=== PATIENT | male | born 1985 | race Caucasian/White ===

== ENCOUNTER 2018-06-01 18:24 | Emergency (ER) | payer OTHER ==
[2018-06-01 19:05] VITALS: BP 128/67; PULSE 65; TEMP 98.1; BMI 29.9
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
== END 2018-06-01 19:37 | disposition home or self-care (01) ==
LOC: JER 18:24
DX: Z20.1 Contact with and (suspected) exposure to tuberculosis (principal); Y35.891A Legal intervention involving other specified means, law enforcement official injured, initial encounter; Y93.89 Activity, other specified; Y92.89 Other specified places as the place of occurrence of the external cause; Y99.0 Civilian activity done for income or pay
CPT/HCPCS: 99281-25

== ENCOUNTER 2018-09-15 20:16 | Emergency (ER) | payer OTHER ==
[2018-09-15 20:28] VITALS: BP 130/83; PULSE 54; TEMP 98.2; BMI 29.6
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
[2018-09-15] MEDS ORDERED: BACITRACIN 15 GM TUBE TOPICAL OINTMENT TP ONE (20:38)
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
== END 2018-09-15 21:03 | disposition home or self-care (01) ==
LOC: JERFT 20:16
DX: S60.411A Abrasion of left index finger, initial encounter (principal); V43.62XA Car passenger injured in collision with other type car in traffic accident, initial encounter; Y92.414 Local residential or business street as the place of occurrence of the external cause; Y93.89 Activity, other specified; Y99.0 Civilian activity done for income or pay
CPT/HCPCS: 99281-25

== ENCOUNTER 2018-11-19 23:32 | Emergency (ER) | payer OTHER ==
[2018-11-20] VITALS: BMI 29.6
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
--- NOTE | 2018-11-20 00:34 | PDOC ---
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
[2018-11-20 01:28] VITALS: BP 128/83; PULSE 88; TEMP 98.5
== END 2018-11-20 01:39 | disposition home or self-care (01) ==
LOC: JER 23:32
DX: S69.91XA Unspecified injury of right wrist, hand and finger(s), initial encounter (principal); Y35.891A Legal intervention involving other specified means, law enforcement official injured, initial encounter; Y93.89 Activity, other specified; Y92.89 Other specified places as the place of occurrence of the external cause; Y99.0 Civilian activity done for income or pay
CPT/HCPCS: 73130-TC-RT-FY; 99281-25

== ENCOUNTER 2019-01-08 22:47 | Emergency (ER) | payer OTHER ==
[2019-01-08 22:53] VITALS: BP 136/74; PULSE 73; TEMP 98.6; BMI 30.4
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
[2019-01-08] MEDS ORDERED: HIV POST EXPOSURE PROPHYLAXIS KIT NR ONE (23:38)
[2019-01-09 00:09] LABS: BASO % 0.8 % (0-2.0); EOS % 3.6 % (0-4.5); HEMATOCRIT 43.4 % (35.4-49); HEMOGLOBIN 15.3 GM/dL (11.7-16.9); LYMPH % 32.3 % (8-40); MCH 31.9 pg (25.7-33.7); MCHC 35.3 g/dl (32.0-35.9); MEAN CELL VOLUME 90.3 fl (80-96); MEAN PLT VOLUME 8.5 fl (7.5-11.1); MONO % 5.9 % (3.8-10.2); NEUT % 57.4 % (42.8-82.8); PLATELET COUNT 161 K/MM3 (134-434); RDW 12.9 % (11.9-15.9); WHITE BLOOD COUNT 8.1 K/mm3 (4.0-10.0)
[2019-01-09 00:45] LABS: CO2 25 mmol/L (21-32); CREATININE 1.2 mg/dL (0.55-1.3)
[2019-01-09 00:46] LABS: CALCIUM 8.4 mg/dL (8.5-10.1)
[2019-01-09 00:47] LABS: ALK PHOS 70 U/L (45-117)
[2019-01-09] MEDS ORDERED: HIV POST EXPOSURE PROPHYLAXIS KIT PO ONE (01:11)
[2019-01-09 02:25] LABS: ALBUMIN 4.2 g/dl (3.4-5.0); ANION GAP 7 MMOL/L (8-16); BILIRUBIN,TOTAL 0.4 mg/dL (0.2-1); BLOOD UREA NITROGEN 23 mg/dL (7-18); CHLORIDE 107 mmol/L (98-107); CHOLESTEROL 195 mg/dL (50-200); GAMMA GLUTAMYL TRANSPEPTIDASE 16 U/L (5-85); GLUCOSE,RANDOM 91 mg/dL (74-106); LDH 198 U/L (87-246); PHOSPHOROUS 3.6 mg/dL (2.5-4.9); POTASSIUM 3.9 mmol/L (3.5-5.1); SGOT/AST 22 U/L (15-37); SGPT/ALT 39 U/L (13-61); SODIUM 139 mmol/L (136-145); TOT PROT 7.3 g/dl (6.4-8.2); TRIGLYCERIDES 126 mg/dL (0-150); URIC ACID 6.4 mg/dL (2.6-7.2)
[2019-01-10 03:14] LABS: HBsAG SCREEN Negative (Negative)
== END 2019-01-09 01:32 | disposition home or self-care (01) ==
LOC: JER 22:47
DX: Z77.21 Contact with and (suspected) exposure to potentially hazardous body fluids (principal); S60.511A Abrasion of right hand, initial encounter; Y35.811A Legal intervention involving manhandling, law enforcement official injured, initial encounter; Y93.89 Activity, other specified; Y92.89 Other specified places as the place of occurrence of the external cause; Y99.0 Civilian activity done for income or pay
CPT/HCPCS: 36415; 80053; 82465; 82977; 83615; 84100; 84478; 84550; 85025; 86317; 86706; 86803; 87340; 87389; 99281-25

== ENCOUNTER 2019-03-05 20:23 | Emergency (ER) | payer OTHER ==
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
[2019-03-05 20:31] VITALS: BP 173/103; PULSE 100; TEMP 98.3; BMI 29.6
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
== END 2019-03-05 21:55 | disposition home or self-care (01) ==
LOC: JERFT 20:23
DX: S76.111A Strain of right quadriceps muscle, fascia and tendon, initial encounter (principal); Y35.811A Legal intervention involving manhandling, law enforcement official injured, initial encounter; Y93.89 Activity, other specified; Y92.89 Other specified places as the place of occurrence of the external cause; Y99.0 Civilian activity done for income or pay; I10 Essential (primary) hypertension
CPT/HCPCS: 99281-25

== ENCOUNTER 2019-12-13 11:20 | Emergency (ER) | payer BC, OTHER ==
[2019-12-13 11:28] VITALS: BMI 29.6
--- NOTE | 2019-12-13 11:54 | PDOC ---
History of Present Illness - General Chief Complaint: Vomiting/Diarrhea Stated Complaint: DIARRHEA, VOMITING Time Seen by Provider: 12/13/19 11:28 History Source: Patient Exam Limitations: No Limitations - History of Present Illness Initial Comments: 12/13/19 11:54 PCP: Dr. Jocelyne Rizvi HPI: 34yo M no PMH presenting with fevers, chills, bodyaches, diarrhea, vomiting , headache for 5 days. Patient endorses worsening diarrhea over the past two days, took an immodium this morning, subsequently diarrhea resolved and vomiting worsened. He presents give concern over feeling unable to keep up with his hydration in setting of diarrhea, vomiting. Endorses profusely watery diarrhea and vomiting up pure water. Denies any blood in stool or emesis. Started on amoxicillin and Tamiflu by his pcp two days ago. Reports two negative flu swabs over this period and a negative rapid strep (reports he had throat pain, improving). Took Advil this morning, threw up shortly after. Has not taken Tylenol. Denies any new or unique foods, no one else with similar diarrhea symptoms that he ate with before onset. All: Levaquin > Hives Meds: Currently on Amoxicillin, Tamiflu PMH: IBS PSH: L elbow Past History - Past Medical History Allergies/Adverse Reactions: Allergies Allergy/AdvReac Type Severity Reaction Status Date / Time levofloxacin [From Levaquin] Allergy Hives Verified 12/13/19 11:22 Home Medications: Ambulatory Orders Amox-Tr/K Cl [Augmentin - 875Mg Tablet] 1 tab PO ASDIR 12/13/19 Guaifenesin [Mucinex] 600 mg PO BID 12/13/19 Ibuprofen 400 mg PO AM 12/13/19 Ondansetron HCl [Zofran] 4 mg PO TID PRN #9 tablet 12/13/19 Oseltamivir Phosphate [Tamiflu] 75 mg PO DAILY 12/13/19 COPD: No - Psycho Social/Smoking Cessation Hx Smoking Status: No Smoking History: Never smoked Have you smoked in the past 12 months: No Number of Cigarettes Smoked Daily: 0 Information on smoking cessation initiated: No Hx Alcohol Use: ("weekly") Drug/Substance Use Hx: No Substance Use Type: None Review of Systems - Review of Systems Able to Perform ROS?: Yes Is the patient limited Lao proficient: Yes Constitutional: Yes: Chills, Fever. No: Diaphoresis, Weakness HEENTM: No: Recent change in vision, Nose Congestion, Throat Pain Respiratory: Yes: Shortness of Breath. No: Cough, Productive cough Cardiac (ROS): No: Chest Pain, Irregular Heart Rate, Lightheadedness, Palpitations, Syncope, Chest Tightness ABD/GI: Yes: Diarrhea, Nausea, Poor Appetite, Poor Fluid Intake, Vomiting. No: Constipated : Yes: Flank Pain. No: Burning, Dysuria, Frequency Musculoskeletal: Yes: Muscle Pain (bodyaches). No: Muscle Weakness Integumentary: No: Bruising, Rash, Sweating Neurological: Yes: Headache. No: Numbness, Tingling, Weakness Psychiatric: No: Stressors, Change in Appetite Endocrine: No: Increased Thirst, Increased Urine Hematologic/Lymphatic: No: Anemia, Blood Clots, Easy Bleeding All Other Systems: Reviewed and Negative *Physical Exam - Vital Signs Last Vital Signs Temp Pulse Resp BP Pulse Ox 98.2 F 95 H 18 146/101 H 98 12/13/19 11:20 12/13/19 11:20 12/13/19 11:20 12/13/19 11:20 12/13/19 11:20 - Physical Exam 12/13/19 12:15 Vitals reviewed, AFVSS, mild HTN GEN: Appears stated age, NAD. AAOx3. HEENT: NCAT, EOMI, PERRL. Sclera anicteric, non-injected. No facial asymmetry. Dry mucous membranes. Normal voice. Trachea midline. CV: RRR, S1/S2, no murmurs / rubs / gallops appreciated. LUNG: CTAB, normal work of breathing. No wheezes, rales, rhonchi. No cough. Speaking full sentences. GI: Soft, NTND, +BS, no guarding, no rebound. No masses. Neg CVAT b/l. EXTREMITIES: 2+ distal pulses. No LE edema. No obvious deformities of all extremities. SKIN: Warm, dry, no rashes appreciated, non-jaundiced. PSYCH: Normal mood and affect. Cooperative and appropriate. NEURO: CN grossly intact. Moving all extremities well. Normal strength and sensation grossly. ED Treatment Course - LABORATORY CBC & Chemistry Diagram: 12/13/19 12:30 12/13/19 12:30 Medical Decision Making - Medical Decision Making 12/13/19 12:46 34yo M no PMH presenting with fevers, chills, bodyaches, diarrhea, vomiting, headache for 5 days. History notable for day 2 of 10 for Amoxicillin and Tamiflu , Immodium, concern over hydration status, worsening watery diarrhea. Exam notable for stable vitals, dry mucous membranes, non-tender abdomen. DDX: Viral gastro enteritis vs influenza vs IBS symptoms, vs less likely colitis. - CBC, CMP - EKG - 1L IVF - 1 g Ofirmev EKbpm, NSR, normal axis, QTc 439, no ischemic morphologies or ST changes - 4mg Zofran 12/13/19 13:25 - Additional 1L IVF ordered - 30 Toradol IV 12/13/19 14:01 - CBC, CMP unremarkable Dispo: Home Discharge - Discharge Information Problems reviewed: Yes Clinical Impression/Diagnosis: Viral gastroenteritis Condition: Stable Disposition: HOME - Admission No - Additional Discharge Information Prescriptions: Ondansetron HCl [Zofran] 4 mg PO TID PRN #9 tablet PRN Reason: Nausea And/Or Vomiting - Follow up/Referral Referrals: Jocelyne Nation MD [Primary Care Provider] - - Patient Discharge Instructions Patient Printed Discharge Instructions: DI for Viral Gastroenteritis -- Adult Additional Instructions: Continue your home medications as prescribed. Stay hydrated with water and electrolyte beverages. A prescription for zofran has been sent to your pharmacy for nausea or vomiting. Use this as needed as directed. Please follow up with your primary care doctors in the next 2-3 days if your symptoms persist. Return to the ED for any new or concerning symptoms. - Post Discharge Activity
--- NOTE | 2019-12-13 12:07 | PDOC ---
Attending Attestation - Resident Resident Name: Cesar Morales - ED Attending Attestation I have performed the following: I have examined & evaluated the patient, The case was reviewed & discussed with the resident, I agree w/resident's findings & plan, Exceptions are as noted - HPI HPI: 34 yo M history IBS presents with fever x4 days (Tmax ~103, now resolved) as well as chills, myalgias, STRANGE, diarrhea, vomiting for past 5 days. He states he was tested for flu, test was negative. However, PMD placed him on amox and tamiflu. He has had watery diarrhea and vomiting for past 2 days. +Abdominal cramping diffusely. - Physicial Exam PE: GENERAL: Awake, alert, and fully oriented, in no acute distress. +Mild pallor. Appears ill but nontoxic HEAD: No signs of trauma EYES: PERRLA, EOMI, sclera anicteric, conjunctiva clear ENT: Auricles normal inspection, hearing grossly normal, nares patent, oropharynx clear without exudates. Dry mucosa NECK: Normal ROM, supple, no lymphadenopathy, JVD, or masses LUNGS: Breath sounds equal, clear to auscultation bilaterally. No wheezes, and no crackles HEART: Regular rate and rhythm, normal S1 and S2, no murmurs, rubs or gallops ABDOMEN: Soft, diffuse mild tenderness, hyperactive bowel sounds. No guarding, no rebound. No masses EXTREMITIES: Normal range of motion, no edema. No clubbing or cyanosis. No cords, erythema, or tenderness NEUROLOGICAL: Cranial nerves II through XII grossly intact. Normal speech, normal gait. Motor and sensation intact SKIN: Warm, dry, normal turgor, no rashes or lesions noted. - Medical Decision Making Pt is ill-appearing but nontoxic. Likely flu, given the nasal congestion with the high fever and GI symptoms. His GI symptoms are likely worse because of history of IBS, use of abx, and tamiflu. Also, GI symptoms have been prevalent with flu recently. No signs of acute abdomen. Will give IV hydration, antiemetics, and check labs. If wnl, will DC home.
[2019-12-13] MEDS ORDERED: SODIUM CHLORIDE 0.9% 500 ML INFUS.BAG IV ONE ×2 (12:10→13:24)
[2019-12-13] MEDS ORDERED: ACETAMINOPHEN 1000 MG/100 ML VIAL (NON FORMULARY) IVPB ONE (12:11)
[2019-12-13] MEDS ORDERED: ACETAMINOPHEN INJECTION 100 ML IVPB ONE (12:41)
[2019-12-13] MEDS ORDERED: ONDANSETRON 4 MG/2 ML VIAL IVPUSH ONE (12:49)
[2019-12-13] MEDS ORDERED: ONDANSETRON 4 MG/2 ML VIAL ONE (12:51)
[2019-12-13 12:59] LABS: BASO % 0.4 % (0-2.0); EOS % 0.7 % (0-4.5); HEMATOCRIT 43.8 % (35.4-49); LYMPH % 17.8 % (8-40); MCH 30.8 pg (25.7-33.7); MCHC 34.3 g/dl (32.0-35.9); MEAN CELL VOLUME 89.9 fl (80-96); MEAN PLT VOLUME 8.5 fl (7.5-11.1); MONO % 6.9 % (3.8-10.2); NEUT % 74.2 % (42.8-82.8); PLATELET COUNT 132 K/MM3 (134-434); RBC 4.88 M/mm3 (4.00-5.60); RDW 11.5 % (11.9-15.9); WHITE BLOOD COUNT 5.8 K/mm3 (4.0-10.8)
[2019-12-13 13:07] LABS: ALBUMIN 4.3 g/dl (3.4-5.0); BILIRUBIN,TOTAL 0.7 mg/dl (0.2-1); CALCIUM 8.7 mg/dl (8.5-10); CREATININE 0.8 mg/dl (0.55-1.3); POTASSIUM 4.2 mmol/L (3.5-5.1); TOT PROT 7.3 g/dl (6.4-8.2)
[2019-12-13] MEDS ORDERED: KETOROLAC TROMETHAMINE 30 MG/1 ML VIAL IVPUSH ONE (13:29)
[2019-12-13] MEDS ORDERED: KETOROLAC TROMETHAMINE 30 MG/1 ML VIAL ONE (13:32)
[2019-12-13 15:01] VITALS: BP 130/80; PULSE 87; TEMP 97.8
--- NOTE | 2019-12-14 12:50 | EKG ---
Test Reason : Blood Pressure : / mmHG Vent. Rate : 077 BPM Atrial Rate : 077 BPM P-R Int : 144 ms QRS Dur : 082 ms QT Int : 388 ms P-R-T Axes : 025 006 003 degrees QTc Int : 439 ms NORMAL SINUS RHYTHM NORMAL ECG WHEN COMPARED WITH ECG OF 08-AUG-2013 11:50, NO SIGNIFICANT CHANGE WAS FOUND Confirmed by JESSE DOWD MD ([id number]) on 12/14/2019 12:50:11 PM Referred By: ALEXA ARREOLA Confirmed By:JESSE DOWD MD
== END 2019-12-13 14:50 | disposition home or self-care (01) ==
LOC: FER 11:20
PROC: 3E0337Z Introduction of Electrolytic and Water Balance Substance into Peripheral Vein, Percutaneous Approach (ICD-10-PCS; principal; 2019-12-13)
DX: K52.9 Noninfective gastroenteritis and colitis, unspecified (principal); B97.89 Other viral agents as the cause of diseases classified elsewhere; Z88.8 Allergy status to other drugs, medicaments and biological substances
CPT/HCPCS: 36415; 80053; 85025; 93005; 99283-25; J0131

== ENCOUNTER 2021-04-10 19:36 | Emergency (ER) | payer BC ==
[2021-04-10 20:03] VITALS: BP 132/95; PULSE 95; TEMP 98.2; BMI 29.6
[2021-04-10] MEDS ORDERED: KETOROLAC TROMETHAMINE 60 MG/2 ML VIAL IM ONE (21:38)
[2021-04-10] MEDS ORDERED: KETOROLAC TROMETHAMINE 60 MG/2 ML VIAL ONE (21:43)
== END 2021-04-10 21:49 | disposition home or self-care (01) ==
LOC: FER 19:36
PROC: 3E0233Z Introduction of Anti-inflammatory into Muscle, Percutaneous Approach (ICD-10-PCS; principal; 2021-04-10)
DX: S69.92XA Unspecified injury of left wrist, hand and finger(s), initial encounter (principal)
CPT/HCPCS: 73110-TC-LT-FY; 73130-TC-LT-FY; 99284-25

== ENCOUNTER 2021-11-30 14:09 | Emergency (ER) | payer OTHER ==
[2021-11-30] MEDS ORDERED: LIDOCAINE 5% TOPICAL PATCH TP ONE (14:32)
[2021-11-30 14:41] VITALS: BP 121/89; PULSE 104; TEMP 97.9; BMI 28.1
[2021-11-30] MEDS ORDERED: LIDOCAINE 5% TOPICAL PATCH ONE (14:43)
[2021-11-30] MEDS ORDERED: LIDOCAINE PATCH REMOVAL MC SCH (22:00)
== END 2021-11-30 14:49 | disposition home or self-care (01) ==
LOC: FER 14:09
DX: M25.561 Pain in right knee (principal); M54.31 Sciatica, right side
CPT/HCPCS: 99283-25

== ENCOUNTER 2022-05-22 22:06 | Emergency (ER) | payer OTHER ==
[2022-05-22 22:19] VITALS: BP 131/82; PULSE 82; TEMP 98; BMI 28.1
[2022-05-22 22:45] LABS: HEMATOCRIT 41.6 % (35.4-49); MCH 32.1 pg (25.7-33.7); MEAN CELL VOLUME 89.2 fl (80-96); PLATELET COUNT 136.3 10^3/uL (134-434); RBC 4.66 10^6/uL (4.00-5.60); RDW 14.1 % (11.9-15.9); WHITE BLOOD COUNT 5.9 10^3/uL (4.0-10.8)
[2022-05-22 23:02] LABS: ALBUMIN 4.2 g/dl (3.4-5.0); BILIRUBIN,TOTAL 0.7 mg/dl (0.2-1); CALCIUM 9.4 mg/dl (8.5-10); TOT PROT 6.7 g/dl (6.4-8.2)
[2022-05-22] MEDS ORDERED: ALPRAZolam 1 MG TABLET PO PRN (23:15)
[2022-05-22] MEDS ORDERED: ALPRAZolam 0.25 MG TABLET ONE (23:43)
== END 2022-05-22 23:44 | disposition home or self-care (01) ==
LOC: FER 22:06
DX: R00.2 Palpitations (principal)
CPT/HCPCS: 36415; 80053; 82550; 84484; 85025; 93005; 93010; 99284-25